=== PATIENT | female | born 1980 | race Caucasian/White ===

== ENCOUNTER 2018-01-09 21:49 | Emergency (ER) | payer MEDICAID ==
[~2018-01-09] VITALS: Ht 154.9 cm; Wt 49.9 kg
[2018-01-09 22:06] VITALS: BP 101/67
[2018-01-09] MEDS ORDERED: HYDROCODON-ACE1 EA15 ORAL (22:26)
[2018-01-09] MEDS ORDERED: AMOXICILLIN500 MG ORAL (22:26)
--- NOTE | 2018-01-09 22:27 | Emergency Room Report ---
History of Present Illness General Chief Complaint: Toothache Source: Patient Present Illness HPI Is a 37-year-old female with no significant past medical history. She presents with dental pain and facial swelling. Her right lower molar tooth has broken off about a month ago. He was doing fine until about a week ago started hurting. The last 2 days his been more painful and swollen. Pain is 8 out of 10. Worse with eating. No drainage. No fever chills but no nausea no vomiting. Has not seen a dentist yet. Pain radiate To her head. Allergies: Coded Allergies: No Known Allergies (Unverified , 01/09/18) Patient History Past Medical History: see triage record, old chart reviewed Past Surgical History: other Pertinent Family History: none Social History: Reports: smoking Now: No Immunizations: other Reviewed Nursing Documentation: PMH: Agreed; PSxH: Agreed Nursing Documentation-PMH Past Medical History: No History, Except For Review of Systems Eye: Denies: eye pain, blurred vision ENT: Denies: ear pain, nose congestion, throat swelling Respiratory: Denies: cough, shortness of breath Cardiovascular: Denies: chest pain, palpitations Gastrointestinal: Denies: abdominal pain, diarrhea, nausea, vomiting Musculoskeletal: Denies: back pain, joint pain Skin: Denies: rash Neurological: Denies: headache, numbness Endocrine: Denies: increased thirst, increased urine Hematologic/Lymphatic: Denies: easy bruising All Other Systems: negative except mentioned in HPI Physical Exam Vital Signs Date Time Temp Pulse Resp B/P (MAP) Pulse Ox O2 Delivery O2 Flow Rate FiO2 01/09/18 21:52 97.7 87 18 101/67 98 Room Air 97.7 vitals normal Sp02 EP Interpretation: reviewed, normal General Appearance: well appearing, no apparent distress, alert Head: normocephalic, atraumatic Eyes: bilateral eye PERRL, bilateral eye EOMI ENT: hearing grossly normal, normal pharynx, other - Poor dentition. The right lower first molar is decayed to the nub. There is a small fluctuant area on the gum line on the buchal mucosal side. Percussive tenderness. Neck: full range of motion, supple, no meningismus Respiratory: chest non-tender, lungs clear, normal breath sounds Cardiovascular #1: regular rate, rhythm, no murmur Gastrointestinal: normal bowel sounds, non tender, no mass, no organomegaly, no bruit, non-distended Musculoskeletal: back normal, gait/station normal, normal range of motion Psychiatric: mood/affect normal Skin: warm/dry Procedures Additional Procedure Procedure Narrative Procedure: Dental block and I&D Indication: Dental abscess Description: I did an inferior alveolar block of the right jaw with 1% lidocaine with epinephrine. 2 mL injected. I also did a local block with 1% lidocaine with epinephrine. 1 mL injected. Using an 11 blade scalpel, I made a 1 cm incision over the fluctuant area. There was moderate amount of pus expressed. No complication. Patient felt much better. Medical Decision Making Diagnostic Impression: Primary Impression: Dental abscess ER Course Patient with a dental abscess. She will need root canal and tooth extraction. No deep infection. We'll discharge home. Last Vital Signs Date Time Temp Pulse Resp B/P (MAP) Pulse Ox O2 Delivery O2 Flow Rate FiO2 01/09/18 22:06 97.7 18 101/67 98 Room Air 97.7 01/09/18 21:52 87 Status: improved Disposition: HOME, SELF-CARE Condition: Stable Scripts Hydrocodone/Acetaminophen 5-325* (HYDROCODONE/ACETAMINOPHEN 5-325*) 1 Each Tablet 1 TAB ORAL Q6H PRN for For Pain, #15 TAB 0 Refills Prov: ABBY CASTORENA M.D. 01/09/18 Amoxicillin* (AMOXIL*) 500 Mg Capsule 500 MG ORAL THREE TIMES A DAY, #21 CAP Prov: ABBY CASTORENA M.D. 01/09/18 Additional Instructions: Follow-up your dentist NACHO. Return if symptom worsen. Continue with salt water rinse. ABBY CASTORENA M.D. January 09, 2018 22:27
[2018-01-09 22:30] VITALS: BP 101/67
== END 2018-01-09 22:30 | disposition home or self-care (01) ==
LOC: EMR 22:19
DX: K04.7 Periapical abscess without sinus (principal)
CPT/HCPCS: 10060; 99284; Z7502

== ENCOUNTER 2018-09-08 19:00 | Emergency (ER) | payer MEDICAID ==
[~2018-09-08] VITALS: Ht 154.9 cm; Wt 54.4 kg
[~2018-09-08 19:00] MED LIST: AMOXICILLIN500 MG ORAL; HYDROCODON-ACE1 EA15 ORAL
[2018-09-08 19:33] VITALS: BP 100/69
--- NOTE | 2018-09-08 19:35 | NUR ---
ER Nurse Note: Pt camee from home c/o fever and flu like symptoms for two days. Pt sounds congested, no phlegm; VSS; no signs of distress. 98.0 F at bedside. Pt states she has body pain 7/10 when breathes. Pt stated she came back from [place] on Wednesday. ERMD at pt side; will continue to [facility].
[2018-09-08] MEDS ORDERED: Acetaminophen 500mg (ES) tab ORAL ONE (19:45)
[2018-09-08] MEDS ORDERED: Albuterol/Ipratropium 3ml neb HHN ONE (19:45)
[2018-09-08] MEDS ORDERED: Lidocaine 2% Visc 15ml soln ORAL ONE (19:45)
[2018-09-08 20:16] LABS: APPEARANCE,URINE SLIGHTLY CLOUDY; BILIRUBIN, URINE NEGATIVE (NEGATIVE); COLOR,URINE PALE YELLOW; GLUCOSE, URINE (UA) NEGATIVE (NEGATIVE); KETONES,URINE 3+ (NEGATIVE); LEUKOCYTE ESTERASE ,URINE NEGATIVE (NEGATIVE); NITRITE,URINE NEGATIVE (NEGATIVE); PH,URINE 6.5 (4.5-8.0); PROTEIN,URINE 1+ (NEGATIVE); UROBILINOGEN,URINE NORMAL MG/DL (0.0-1.0)
--- NOTE | 2018-09-08 20:30 | NUR ---
ED Nurse Note: recieved pt from monitor bed, pt stated she feels good after the breathing treatment. pt with spouse. will continue to monitor.
[2018-09-08] MEDS ORDERED: NAPROXEN250 MG ORAL (20:40)
[2018-09-08] MEDS ORDERED: ZOFRAN4 MG ORAL (20:40)
[2018-09-08 21:09] VITALS: BP 100/69
--- NOTE | 2018-09-08 21:09 | NUR ---
ED Nurse Note: Patient is being discharged from ED alert and oriented x4, ambulatory with a steady gait, VSS. Patient acknowledged the need to follow up with a PMD, Patient was advised to return if symptoms worsen. prescription in hand, ID band removed. pt left the ed with all the belongings.
--- NOTE | 2018-09-09 10:59 | Emergency Room Report ---
History of Present Illness General Chief Complaint: Upper Respiratory Illness Source: Patient Present Illness HPI Patient is a 38-year-old female presented after increased cough and congestion. Patient reports of increased nonproductive cough associated generalized body aches. She reports having some subjective fever. She reports having some sick contacts with similar illnesses. She denies any prior cardiac history. She reports having intermittent cough. She denies any leg pain or swelling. Patient states that she is a smoker. Allergies: Coded Allergies: No Known Allergies (Unverified , 01/09/18) Patient History Past Medical History: see triage record Last Menstrual Period: Aug 22 2018 Now: No Reviewed Nursing Documentation: PMH: Agreed; PSxH: Agreed Review of Systems All Other Systems: negative except mentioned in HPI Physical Exam Vital Signs Date Time Temp Pulse Resp B/P (MAP) Pulse Ox O2 Delivery O2 Flow Rate FiO2 09/08/18 19:10 98.2 108 20 86/57 99 Room Air 09/08/18 19:58 21 General Appearance: well appearing, no apparent distress, alert, GCS 15 Head: normocephalic, atraumatic ENT: hearing grossly normal, normal voice Neck: full range of motion, supple Respiratory: no respiratory distress, speaking full sentences, wheezing Cardiovascular #1: normal inspection, normal peripheral pulses, regular rate, rhythm Gastrointestinal: normal inspection, non tender, soft Musculoskeletal: normal inspection, no calf tenderness Neurologic: normal inspection, alert, oriented x3, normal gait Psychiatric: mood/affect normal Skin: no rash Medical Decision Making Diagnostic Impression: Primary Impression: Influenza A ER Course Patient presented for cough. Differential diagnosis included but was not limited to bronchitis, pneumonia, pulmonary embolism, pericarditis, asthma, foreign body. Patient appears to have a influenza-like illness. Nasal swab confirmed influenza A. Patient was offered Tamiflu which she declined. She was given breathing treatments. Patient is given prescription for medications for symptomatic treatment. Labs Test 09/08/18 19:45 Urine Color Pale yellow Urine Appearance Slightly cloudy Urine pH 6.5 (4.5-8.0) Urine Specific [place] 1.005 (1.005-1.035) Urine Protein 1+ (NEGATIVE) Urine Glucose (UA) Negative (NEGATIVE) Urine Ketones 3+ (NEGATIVE) Urine Blood 5+ (NEGATIVE) Urine Nitrite Negative (NEGATIVE) Urine Bilirubin Negative (NEGATIVE) Urine Urobilinogen Normal MG/DL (0.0-1.0) Urine Leukocyte Esterase Negative (NEGATIVE) Urine RBC Tntc /HPF (0 - 2) Urine WBC 0-2 /HPF (0 - 2) Urine Squamous Epithelial Cells Few /LPF (NONE/OCC) Urine Bacteria Moderate /HPF (NONE) Urine HCG, Qualitative Negative (NEGATIVE) Last Vital Signs Date Time Temp Pulse Resp B/P (MAP) Pulse Ox O2 Delivery O2 Flow Rate FiO2 09/08/18 21:09 98.2 78 19 100/69 99 Room Air 21 Status: improved Disposition: HOME, SELF-CARE Condition: Stable Scripts Ondansetron (Zofran) 4 Mg Tablet 4 MG ORAL Q6H PRN for Nausea & Vomiting, #15 TAB 0 Refills Prov: Sha Marley MD 09/08/18 Naproxen* (NAPROSYN*) 250 Mg Tablet 250 MG ORAL TWICE A DAY, #14 TAB 0 Refills Prov: Sha Marley MD 09/08/18 Patient Instructions: Influenza, Adult Additional Instructions: Return if worsened shortness of breath, or other concerns Sha Marley MD Sep 09, 2018 10:59
== END 2018-09-08 21:09 | disposition home or self-care (01) ==
LOC: EMR 19:25
DX: J10.1 Influenza due to other identified influenza virus with other respiratory manifestations (principal)
CPT/HCPCS: 81003; 81025; 86710; 87086; 94640; 94664; 99284; J7620

== ENCOUNTER 2019-01-30 12:36 | Emergency (ER) | payer SELFPAY ==
[~2019-01-30] VITALS: Ht 154.9 cm; Wt 52.2 kg
[~2019-01-30 12:36] MED LIST changes: +NAPROXEN250 MG ORAL; +ZOFRAN4 MG ORAL
[2019-01-30] MEDS ORDERED: NKM (12:45)
--- NOTE | 2019-01-30 12:57 | NUR ---
ED Nurse Note: PT WALKED IN TO ER TODAY FROM HOME. AOX4. PT C/O AN INTERMITTENT, PAINFUL, PROTRUDING BULGE BY HER RIGHT GROIN AREA X 6 MONTHS AGO. ON ASSESSMENT, NO OBVIOUS PROTRUSION ON ASSESSMENT. SKIN CLEAN, DRY, AND INTACT.
[2019-01-30 12:59] VITALS: BP 112/62
--- NOTE | 2019-01-30 13:03 | Emergency Room Report ---
History of Present Illness General Chief Complaint: Skin Rash/Abscess Source: Patient Present Illness HPI 38-year-old female with no significant past medical history here complaining of a mass in the inguinal hernia for the past 6 months. She reports that she has had it all her life however the past 6 months it tends to protrude more often and be minimally painful rating the pain 3 out of 10 without radiation. Denies any pus drainage, fever or chills. Patient has not seen her primary doctor in this regard. She further complains of a pruritic rash in the inguinal area and decreases of her underwear as well as under her bra and antecubital side reports that every time she sweats she sees a rash appearing denies pain. Denies pus drainage, chest pain, shortness of breath, palpitation, abdominal pain, nausea vomiting, dysuria, urinary frequency, vaginal discharge. Denies exposure to any other allergens. Not taking any medication. Patient smokes cigarettes on a daily basis Allergies: Coded Allergies: No Known Allergies (Unverified , 01/09/18) Patient History Past Medical History: see triage record Past Surgical History: unable to obtain Pertinent Family History: none Last Menstrual Period: 01/02/19 Now: No Immunizations: UTD Reviewed Nursing Documentation: PMH: Agreed; PSxH: Agreed Nursing Documentation-PMH Past Medical History: No History, Except For Review of Systems All Other Systems: negative except mentioned in HPI Physical Exam Vital Signs Date Time Temp Pulse Resp B/P (MAP) Pulse Ox O2 Delivery O2 Flow Rate FiO2 01/30/19 12:42 98.4 79 17 116/64 (81) 99 Room Air Sp02 EP Interpretation: reviewed, normal General Appearance: normal inspection, well appearing, no apparent distress, alert Head: normocephalic, atraumatic Eyes: bilateral eye normal inspection, bilateral eye PERRL ENT: normal ENT inspection, hearing grossly normal, normal pharynx Neck: normal inspection, full range of motion, supple, thyroid normal Respiratory: normal inspection, chest non-tender, lungs clear, normal breath sounds, no rhonchi, no respiratory distress, no accessory muscle use, no wheezing Cardiovascular #1: normal inspection, regular rate, rhythm, normal capillary refill Gastrointestinal: non tender, soft, hernia - Reducible hernia in the right inguinal Rectal: deferred Genitourinary: no CVA tenderness Musculoskeletal: normal inspection, back normal, digits/nails normal, gait/ station normal Neurologic: normal inspection, alert, oriented x3, responsive Psychiatric: normal inspection, judgement/insight normal, memory normal Skin: normal inspection, normal color, no rash Lymphatic: normal inspection, no adenopathy Medical Decision Making PA Attestation All my diagnosis and treatment plans were reviewed ad discussed with my supervising physician Dr. Cortez Diagnostic Impression: Primary Impression: Inguinal hernia Additional Impression: Contact dermatitis ER Course 38-year-old female with no significant past medical history here complaining of a mass in the inguinal hernia for the past 6 months. She reports that she has had it all her life however the past 6 months it tends to protrude more often and be minimally painful rating the pain 3 out of 10 without radiation. Denies any pus drainage, fever or chills. Patient has not seen her primary doctor in this regard. She further complains of a pruritic rash in the inguinal area and decreases of her underwear as well as under her bra and antecubital side reports that every time she sweats she sees a rash appearing denies pain. Denies pus drainage, chest pain, shortness of breath, palpitation, abdominal pain, nausea vomiting, dysuria, urinary frequency, vaginal discharge. Denies exposure to any other allergens. Not taking any medication. Patient smokes cigarettes on a daily basis Ddx considered but are not limited to: Eczema, scabies, lice, contact dermatitis , inguinal hernia nonreducible, inguinal hernia reducible Vital signs: are WNL, pt. is afebrile H&PE are most consistent with: Hernia, contact dermatitis ORDERS: Triamcinolone cream, naproxen ED INTERVENTIONS: None required at this time. DISCHARGE: At this time pt. is stable for d/c to home. Will provide printed patient care instructions, and any necessary prescriptions. Care plan and follow up instructions have been discussed with the patient prior to discharge. I advised the patient to wear cotton only underwear and bra was use over-the- counter Cetaphil cream for symptom relief see primary care provider for referral to general surgery for repair of inguinal hernia as it has been bothersome return to the emergency room if the hernia becomes nonreducible 10 out of 10 pain or bluish discoloration Last Vital Signs Date Time Temp Pulse Resp B/P (MAP) Pulse Ox O2 Delivery O2 Flow Rate FiO2 01/30/19 12:42 98.4 79 17 116/64 (81) 99 Room Air Disposition: HOME, SELF-CARE Condition: Stable Scripts Naproxen* (NAPROXEN*) 500 Mg Tablet 500 MG ORAL TWICE A DAY, #30 TAB Prov: John Echevarria 01/30/19 Triamcinolone Acet (Triamcinolone Acetonide) 80 Gm Cream..g. 2 GM APPLIC BID, #80 GM Prov: John Echevarria 01/30/19 Patient Instructions: Contact Dermatitis, [id number], Inguinal Hernia, Adult , [id number] Additional Instructions: use over the counter Cetaphil cream. see general surgeon for hernia repair John Echevarria Jan 30, 2019 13:03
[2019-01-30] MEDS ORDERED: NAPROXEN500 M2 ORAL (13:05)
[2019-01-30] MEDS ORDERED: KENALOG 0.1% CR15 GM APPLIC (13:05)
--- NOTE | 2019-01-30 13:12 | NUR ---
ED Nurse Note: PT LAYING PEACEFULLY IN BED IN NAD. AOX4. PRESCRIPTIONS AND DISCHARGE PAPERWORK EXPLAINED TO PT. PT VERBALIES UNDERSTANDING AND ALL QUESTIONS ANSWERED. PRESCRIPTIONS AND DISCHARGE PAPERWORK GIVEN TO PT AND ID WRISTBAND REMOVED. PT WALKED OUT OF ER WITH STEADY GAIT AND ALL BELONGINGS.
== END 2019-01-30 13:13 | disposition home or self-care (01) ==
LOC: EMR 13:05
DX: K40.90 Unilateral inguinal hernia, without obstruction or gangrene, not specified as recurrent (principal); L25.9 Unspecified contact dermatitis, unspecified cause
CPT/HCPCS: 99282